=== PATIENT | female | born 1980 | race Caucasian/White ===

== ENCOUNTER 2021-09-15 14:58 | Outpatient (CLI) | payer OTHER | END 2021-09-15 14:59 | disposition home or self-care (01) | LOC: SCSMRI 14:58 | PROVIDERS: ATTEND Nurse Practitioner Family | DX: G93.9 Disorder of brain, unspecified (principal) | CPT/HCPCS: 70551 ==

== ENCOUNTER 2021-10-04 12:50 | Outpatient (CLI) | payer OTHER | END 2021-10-04 12:51 | disposition home or self-care (01) | LOC: EEG 12:50 | PROVIDERS: ATTEND Psychiatry & Neurology Neurology | DX: G40.409 Other generalized epilepsy and epileptic syndromes, not intractable, without status epilepticus (principal) | CPT/HCPCS: 95816; 95957 ==